=== PATIENT | male | born 1995 | race Caucasian/White ===

== ENCOUNTER 2019-11-20 15:46 | Emergency (ER) | payer OTHER, BC ==
[2019-11-20 15:52] VITALS: BP 136/98
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
== END 2019-11-20 17:35 | disposition home or self-care (01) ==
LOC: ER 15:46
DX: S00.83XA Contusion of other part of head, initial encounter (principal); R68.84 Jaw pain; Y04.2XXA Assault by strike against or bumped into by another person, initial encounter; Z88.0 Allergy status to penicillin
CPT/HCPCS: 70486; 99283